=== PATIENT | female | born 1975 ===

== ENCOUNTER 2022-03-20 05:43 | Day surgery (SDC) | payer OTHER ==
[~2022-03-20 05:43] MED LIST: TOPROL XL25 M1 PO
== END 2022-03-20 15:45 | disposition home or self-care (01) ==
LOC: CIR.AMB 05:43
PROVIDERS: ATTEND Colon & Rectal Surgery
DX: K64.8 Other hemorrhoids (principal); K62.2 Anal prolapse; Z20.822 Contact with and (suspected) exposure to COVID-19; I10 Essential (primary) hypertension